=== PATIENT | female | born 1990 | race American Indian/Alaskan Native ===

== ENCOUNTER 2016-08-28 12:06 | Emergency (ER) | payer OTHER, MEDICAID ==
[2016-08-28] MEDS ORDERED: KEPPRA PO ONE (14:21)
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
[2016-08-28] MEDS ORDERED: NORCO 5/325 PO ONE (14:39)
--- NOTE | 2016-08-28 15:55 | Cat Scan Report ---
CT scan cervical spine: History: Trauma. Findings: Odontoid process, lateral mass and anterior and posterior arch of atlas appears normal. Occipital condyles appears normal. Normal height of vertebral bodies and intervertebral disc. Normal articular surfaces. No fracture. Normal prevertebral soft tissue. Impression: Essentially negative cervical spine.
--- NOTE | 2016-08-28 15:56 | Cat Scan Report ---
CT scan of head without contrast: History: Trauma. Findings: Ventricles are normal in size and midline in location. No evidence of acute ischemia, hemorrhage or mass. No extra-axial fluid collection. Normal brainstem and cerebellum. Retention cyst or polyp measuring 1.7 x 1 cm in diameter the right maxillary sinus. Impression: No acute intracranial abnormality.
[2016-08-28 16:15] VITALS: BP 146/86
== END 2016-08-28 16:14 | disposition home or self-care (01) ==
LOC: ED 12:06
DX: S13.4XXA Sprain of ligaments of cervical spine, initial encounter (principal); G40.909 Epilepsy, unspecified, not intractable, without status epilepticus; M19.90 Unspecified osteoarthritis, unspecified site; Z88.0 Allergy status to penicillin; Z88.6 Allergy status to analgesic agent; V89.2XXA Person injured in unspecified motor-vehicle accident, traffic, initial encounter; Y93.9 Activity, unspecified; Y99.9 Unspecified external cause status; Y92.410 Unspecified street and highway as the place of occurrence of the external cause
CPT/HCPCS: 70450; 72125; 81025; 99283

== ENCOUNTER 2016-11-20 21:03 | Emergency (ER) | payer MEDICAID, OTHER ==
[2016-11-20] MEDS ORDERED: NACL 0.9% 1000 ML 1,000 ML ONE (21:38)
[2016-11-20 21:49] LABS: Urine Drugs of Abuse Note Disclamer
[2016-11-20 22:01] LABS: Bilirubin,Urine NEG (Negative); Blood,Urine SM (Negative); Ketones,Urine NEG (Negative); Leukocyte Esterase,Urine NEG (Negative); Nitrite,Urine NEG (Negative); Protein,Urine <15 mg/dL mg/dL (Negative); RBC,Urine < 1.0 /HPF (0.0-6.0); Urobilinogen,Urine < 2.0 mg/dL (<2.0); WBC,Urine < 1.0 /HPF (0.0-6.0)
[2016-11-20 22:05] LABS: Basophils % (Auto) 0.7 % (0.0-1.8); Eosinophils % (Auto) 1.4 % (0.0-4.3); Hemoglobin 12.9 gm/dl (10.1-14.3); Mean Corpuscular HGB Conc 32 % (30-34); Mean Corpuscular Hemoglobin 28 pg (28-32); Mean Corpuscular Volume 86 fl (79-97); Platelet Count 266 K/mm3 (140-440); Red Blood Count 4.68 M/mm3 (3.65-5.03); Red Cell Distribution Width 15.5 % (13.2-15.2); White Blood Count 6.8 K/mm3 (4.5-11.0)
[2016-11-20 22:17] LABS: Anion Gap 22 mmol/L; Blood Urea Nitrogen 9 mg/dL (7-17); Calcium 9.6 mg/dL (8.4-10.2); Carbon Dioxide 20 mmol/L (22-30); Chloride 103.4 mmol/L (98-107); Glucose 98 mg/dL (65-100); Potassium 3.6 mmol/L (3.6-5.0); Sodium 142 mmol/L (137-145)
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
[2016-11-20] MEDS ORDERED: NACL 0.9% 1000 ML 1,000 ML IV ONE (23:08)
[2016-11-21] MEDS ORDERED: TRIPLE ANTIBIOTIC TP ONE ×2 (05:24→06:27)
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
[2016-11-21] MEDS: KEPPRA PO SCH (22:40)
[2016-11-22] MEDS: KEPPRA PO SCH (10:01)
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
[2016-11-22] MEDS: ZOLOFT PO SCH (15:07)
[2016-11-22] MEDS: VISTARIL PO SCH ×2 (15:07→22:57)
[2016-11-22] MEDS ORDERED: DESYREL PO SCH (22:00)
--- NOTE | 2016-11-23 09:49 | Progress Note ---
Subjective - Reason for Consult Consult date: 11/23/16 Reason for consult: Psychiatry Follow-up - Chief Complaint Chief complaint: "Not a bad day" This is a 26 year-old domiciled female who reports a formal PPH of MDD, PTSD and alcohol abuse who presents the ER after a recent overdose as well as self- inflicted lacerations on forearms bilaterally. Today patient is calm and cooperative with a linear thought process. She acknowledged getting rest last night and feel much better today. She stated that life stressors (unemployment and financial obligations) just took a toll on her. She stated, 'I felt overwhelmed." She decided to take the pills, cut on herself using a razor blade (both arms), and drink alcohol (etoh). She stated, "I wanted it to be over." Patient have a hx of depression/anxiety and admits not having good coping skills. Today she was more forthcoming with information about the latest episode (self injury and taking pills.) She denies SI/HI's, AVH's, or sleep disturbance. She rate her depression/anxiety 3/10, with 10 being the worse. Mental Status Exam - Vital signs Last Vital Signs Temp 97.5 F L 11/22/16 08:34 Pulse 72 11/22/16 19:15 Resp 17 11/22/16 19:15 BP 103/53 11/22/16 19:15 Pulse Ox 99 11/22/16 19:15 - Exam Narrative exam: MSE: Appearance: calm, cooperative Behavior: good eye contact Speech: regular rate and tone Mood: "I feel better" Affect: euthymic Thought Process: linear Thought Content: denies SI/HI's and AVH's Motor Activity: Ambulatory Cognition: A/O x3 Insight: fair Judgment: fair Assessment and Plan Impression: This is a 26 year-old domiciled female who reports a formal PPH of MDD, PTSD and alcohol abuse who presents the ER after a recent overdose as well as self-inflicted lacerations on forearms bilaterally. Today patient is calm and cooperative with a linear thought process. She acknowledged getting rest last night and feel much better today. Patient alcohol level was 0.26 with sleep deprivation on admission. Patient has gotten rest and a better historian today. This is her 3rd day in the hospital. Recommendation/Plan: Continue Continue patient on 1013 and transferred to inpatient psychiatric facility. Continue Trazodone 50 mg PO HS for sleep, Zoloft 50 mg PO for depression, and Vistaril 25 TID for acute anxiety. Discussed possible suicidality and medication induced steven (Antidepressants). Generalized coping skills discussed with patient.
[2016-11-23] MEDS: VISTARIL PO SCH ×2 (10:09→14:05)
[2016-11-23] MEDS: KEPPRA PO SCH (10:09)
[2016-11-23] MEDS: ZOLOFT PO SCH (10:09)
[2016-11-23 11:21] VITALS: BP 107/59
== END 2016-11-23 14:24 | disposition home or self-care (01) ==
LOC: EEVIPCON 21:03 → ED 21:03
DX: T50.2X2A Poisoning by carbonic-anhydrase inhibitors, benzothiadiazides and other diuretics, intentional self-harm, initial encounter (principal); F10.120 Alcohol abuse with intoxication, uncomplicated; M19.90 Unspecified osteoarthritis, unspecified site; F17.200 Nicotine dependence, unspecified, uncomplicated; Z88.0 Allergy status to penicillin; Z88.8 Allergy status to other drugs, medicaments and biological substances; Y92.89 Other specified places as the place of occurrence of the external cause
CPT/HCPCS: 36415; 80048; 80307; 81001; 81025; 85025; 93005; 93010; 96360; 96361; 99285; G0480; J7030; 80320; A6250; Q0177

== ENCOUNTER 2016-12-06 21:50 | Emergency (ER) | payer MEDICAID ==
[2016-12-07 00:09] LABS: Urine Drugs of Abuse Note Disclamer
[2016-12-07 00:30] LABS: Bilirubin,Urine NEG (Negative); Blood,Urine SM (Negative); Ketones,Urine NEG (Negative); Leukocyte Esterase,Urine NEG (Negative); Mucus,Urine FEW /HPF; Nitrite,Urine NEG (Negative); Urobilinogen,Urine < 2.0 mg/dL (<2.0)
[2016-12-07 00:42] LABS: Hematocrit 35.4 % (30.3-42.9); Hemoglobin 11.6 gm/dl (10.1-14.3); Mean Corpuscular HGB Conc 33 % (30-34); Mean Corpuscular Hemoglobin 29 pg (28-32); Mean Corpuscular Volume 88 fl (79-97); Platelet Count 270 K/mm3 (140-440); Red Blood Count 4.04 M/mm3 (3.65-5.03); Red Cell Distribution Width 14.9 % (13.2-15.2); White Blood Count 11.4 K/mm3 (4.5-11.0)
[2016-12-07 00:51] LABS: Anion Gap 20 mmol/L; BUN/Creatinine Ratio 16.66; Blood Urea Nitrogen 10 mg/dL (7-17); Calcium 8.5 mg/dL (8.4-10.2); Carbon Dioxide 20 mmol/L (22-30); Chloride 104.1 mmol/L (98-107); Glucose 93 mg/dL (65-100); Potassium 3.8 mmol/L (3.6-5.0); Sodium 140 mmol/L (137-145)
[2016-12-07] MEDS ORDERED: XYLOCAINE 1%/ EPI 1:100,000 INFILTRATI ONE ×2 (03:43)
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
[2016-12-07] MEDS ORDERED: KEPPRA PO SCH (10:00)
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
[2016-12-07 11:36] VITALS: BP 140/83
[2016-12-07] MEDS ORDERED: ZOLOFT PO SCH (16:00)
[2016-12-07] MEDS ORDERED: VISTARIL PO SCH (20:00)
[2016-12-07] MEDS ORDERED: DESYREL PO SCH (22:00)
== END 2016-12-07 16:30 ==
LOC: ED 21:50
DX: F10.129 Alcohol abuse with intoxication, unspecified (principal); R45.850 Homicidal ideations; R46.89 Other symptoms and signs involving appearance and behavior; R56.9 Unspecified convulsions; F43.10 Post-traumatic stress disorder, unspecified; Z87.891 Personal history of nicotine dependence
CPT/HCPCS: 36415; 80048; 80307; 81001; 81025; 85027; 99285; G0480; 80320

== ENCOUNTER 2017-11-04 12:18 | Emergency (ER) | payer MEDICAID ==
[2017-11-04 14:01] LABS: Basophils % (Auto) 0.3 % (0.0-1.8); Eosinophils # (Auto) 0.2 K/mm3 (0.0-0.4); Eosinophils % (Auto) 1.6 % (0.0-4.3); Hematocrit 32.9 % (30.3-42.9); Hemoglobin 10.9 gm/dl (10.1-14.3); Lymphocytes % (Auto) 16.7 % (13.4-35.0); Mean Corpuscular HGB Conc 33 % (30-34); Mean Corpuscular Hemoglobin 28 pg (28-32); Mean Corpuscular Volume 85 fl (79-97); Monocytes # (Auto) 1.1 K/mm3 (0.0-0.8); Monocytes % (Auto) 9.5 % (0.0-7.3); Red Blood Count 3.89 M/mm3 (3.65-5.03); Red Cell Distribution Width 14.2 % (13.2-15.2)
[2017-11-04 14:02] LABS: Platelet Count 299 K/mm3 (140-440)
[2017-11-04 16:52] VITALS: BP 116/62
[2017-11-04 17:09] LABS: Bilirubin,Urine NEG (Negative); Blood,Urine LG (Negative); Color,Urine Yellow (Yellow); Mucus,Urine FEW /HPF; Protein,Urine <15 mg/dL mg/dL (Negative)
--- NOTE | 2017-11-04 17:18 | Ultrasound Report ---
FINAL REPORT EXAM: US OB > = 14 WK FETUS ADD GEST HISTORY: VAG BLEEDING AND PREG TECHNIQUE: Standard full obstetrical ultrasound for twin PRIORS: None. FINDINGS: LMP: unknown Clinical Age:? W ? D LMP EDC: ? BABY A US Age (average) = 20 w 2D EFW (BPD,HC,AC,FL) = 345 g +/-51G (0lbs 12 oz. +/- 2 oz.) EDC 03/22/2018 CI 89.4) HC/AC 1.12 FL/BPD 65.2 FL/HC 18.3 FL/AC 20.5 BPD 4.9 cm corresponding to estimated age 20 weeks 5 days HC 17.4 cm corresponding to estimated age 19 weeks 6 days AC 15.3 cm corresponding to estimated age 20 weeks 5 days FL 13.2 cm corresponding to estimated age 19 weeks 6 days Presentation: Cephalic Activity: Monitored Placental location: Anterior to the right lateral aspect with no evidence for previa. Placental grade: 0 Cardiac motion: 154 BPM using M-mode doppler Heart (4 CH) : Present Umbilical cord: 3 vessel Bladder: Present Kidneys: Present stomach: Present Diaphragm: Present Spine: Present brain and skull: Present with normal anatomy femurs: Present humerus: Present Cord Insertion: Present Amniotic Fluid Volume: Adequate BABY B US Age (average) = 20 w 0 d EFW (BPD,HC,AC,FL) = 322 g +/-48g (0lbs 11 oz. +/- 2 oz.) EDC 03/24/2018 CI 84.8 HC/AC 1.18 FL/BPD 68.6 FL/HC 18.9 FL/AC 22.2 BPD 4.8 cm corresponding to estimated age 20 weeks 2 days HC 17.5 cm corresponding to estimated age 19 weeks 5 days AC 14.5 cm corresponding to estimated age 19 weeks 6 days FL 3.3 cm corresponding to estimated age 20 weeks 0 days Presentation: Fetus B head to the maternal left Activity: Monitored Placental location: Left lateral aspect anteriorly but no evidence for previa. Placental grade: 0 Cardiac motion: 149 BPM using M-mode doppler Heart (4 CH) : Present Umbilical cord: 3 vessel Bladder: Present Kidneys: Not visualized due to positioning stomach: Present Diaphragm: Present Spine: Partially visualized but sagittal imaging is limited due to positioning. brain and skull: Present with normal anatomy femurs: Present Cord Insertion: Present Amniotic Fluid Volume: Adequate Cervical Length: 2.6 cm IMPRESSION: Twin intrauterine viable with an approximate age of 20 weeks 2 days for FETUS A and approximate age of 20 weeks 0 days for FETUS B. 2 separate placentas are noted. TECHNIQUE: PRIORS: FINDINGS: IMPRESSION:
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
== END 2017-11-04 18:11 | disposition home or self-care (01) ==
LOC: ED 12:18
DX: O20.9 Hemorrhage in early pregnancy, unspecified (principal); R10.30 Lower abdominal pain, unspecified; O26.892 Other specified pregnancy related conditions, second trimester; Z3A.20 20 weeks gestation of pregnancy
CPT/HCPCS: 36415; 76805; 76810; 81001; 84703; 85025; 86850; 86900; 86901

== ENCOUNTER 2017-11-11 14:59 | Emergency (ER) | payer SELFPAY ==
[2017-11-11 16:02] LABS: Basophils % (Auto) 0.3 % (0.0-1.8); Eosinophils # (Auto) 0.1 K/mm3 (0.0-0.4); Eosinophils % (Auto) 1.2 % (0.0-4.3); Hematocrit 29.7 % (30.3-42.9); Hemoglobin 9.8 gm/dl (10.1-14.3); Lymphocytes # (Auto) 1.9 K/mm3 (1.2-5.4); Mean Corpuscular HGB Conc 33 % (30-34); Mean Corpuscular Hemoglobin 28 pg (28-32); Mean Corpuscular Volume 84 fl (79-97); Monocytes # (Auto) 1.2 K/mm3 (0.0-0.8); Platelet Count 314 K/mm3 (140-440); Red Blood Count 3.54 M/mm3 (3.65-5.03); Red Cell Distribution Width 13.8 % (13.2-15.2)
[2017-11-11 16:17] LABS: BUN/Creatinine Ratio 17; Blood Urea Nitrogen 5 mg/dL (7-17); Calcium 9.2 mg/dL (8.4-10.2); Hemolysis Index 5
[2017-11-11 17:37] LABS: Bilirubin,Urine NEG (Negative); Blood,Urine NEG (Negative); Mucus,Urine 1+ /HPF
[2017-11-11 17:38] LABS: Color,Urine Dark Yellow (Yellow)
[2017-11-11 17:45] LABS: Amphetamine Screen,Urine PRESUMPTIVE NEGATIVE; Benzodiazepines Screen,Urine PRESUMPTIVE NEGATIVE; Cannabinoid Screen,Urine PRESUMPTIVE NEGATIVE; Cocaine Screen,Urine PRESUMPTIVE NEGATIVE; Opiate Screen,Urine PRESUMPTIVE NEGATIVE
[2017-11-11 18:00] LABS: Methadone Screen,Urine PRESUMPTIVE POSITIVE
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
[2017-11-11] MEDS ORDERED: KEFLEX PO ONE (19:03)
[2017-11-11] MEDS ORDERED: BOOSTRIX IM ONE (19:03)
[2017-11-11 19:31] VITALS: BP 120/72
[2017-11-11] MEDS ORDERED: TRIPLE ANTIBIOTIC TP ONE (19:45)
[2017-11-11] MEDS ORDERED: ANTIBIOTIC OINT TP ONE (20:00)
== END 2017-11-11 19:55 | disposition home or self-care (01) ==
LOC: ED 14:59
DX: O9A.212 Injury, poisoning and certain other consequences of external causes complicating pregnancy, second trimester (principal); S41.112A Laceration without foreign body of left upper arm, initial encounter; O99.342 Other mental disorders complicating pregnancy, second trimester; M19.90 Unspecified osteoarthritis, unspecified site; O99.332 Smoking (tobacco) complicating pregnancy, second trimester; F12.10 Cannabis abuse, uncomplicated; Z3A.20 20 weeks gestation of pregnancy; Z90.49 Acquired absence of other specified parts of digestive tract; Z88.0 Allergy status to penicillin; Z88.8 Allergy status to other drugs, medicaments and biological substances; Y33.XXXA Other specified events, undetermined intent, initial encounter; Y93.89 Activity, other specified; Y92.89 Other specified places as the place of occurrence of the external cause; Y99.8 Other external cause status
CPT/HCPCS: 36415; 80048; 80307; 81001; 85025; 90471; 90715; 99284; G0480; 80320; A6250

== ENCOUNTER 2017-11-15 10:22 | Inpatient (IN) | payer MEDICAID ==
[2017-11-15] MEDS ORDERED: LACTATED RINGERS 500 ML IV ONE (12:00)
[2017-11-15 12:22] LABS: Bilirubin,Urine NEG (Negative); Blood,Urine LG (Negative); Color,Urine Yellow (Yellow); Mucus,Urine FEW /HPF; Protein,Urine <15 mg/dL mg/dL (Negative); Urobilinogen,Urine < 2.0 mg/dL (<2.0)
[2017-11-15 12:27] LABS: Amphetamine Screen,Urine PRESUMPTIVE NEGATIVE; Benzodiazepines Screen,Urine PRESUMPTIVE NEGATIVE; Cannabinoid Screen,Urine PRESUMPTIVE NEGATIVE; Cocaine Screen,Urine PRESUMPTIVE NEGATIVE; Methadone Screen,Urine PRESUMPTIVE NEGATIVE; Opiate Screen,Urine PRESUMPTIVE NEGATIVE
--- NOTE | 2017-11-15 13:26 | History and Physical Report ---
History of Present Illness Date of examination: 11/15/17 Date of admission: 11/15/17 Chief complaint: vaginal bleeding and contractions History of present illness: This is a 27 yo G P at 21+4 weeks with twins. She has no care. She is a user of drugs. Hx of epilepsy ( took meds today) No other history noted Past History Past Medical History: seizure Past Surgical History: no surgical history Family/Genetic History: none Social history: no significant social history, single, smoking, prescription drug abuse, IV drug use - Obstetrical History Expected Date of Delivery: 03/25/18 Actual Gestation: 21 Week(s) 3 Day(s) : 5 Para: 3 Hx # Term Pregnancies: 1 Number of Pregnancies: 2 Spontaneous Abortions: 0 Induced : 1 Number of Living Children: 3 Medications and Allergies Allergies Allergy/AdvReac Type Severity Reaction Status Date / Time Penicillins Allergy Rash Verified 05/03/14 09:05 tramadol AdvReac Unknown Verified 05/03/14 09:05 Home Medications Medication Instructions Recorded Confirmed Last Taken Type levETIRAcetam [Keppra TAB] 1,500 mg PO DAILY 11/20/16 12/07/16 12/07/16 History Cephalexin [Keflex] 500 mg PO Q8HR #12 cap 11/11/17 Unknown Rx Review of Systems All systems: negative Genitourinary: vaginal bleeding, contractions - Physical Exam Breasts: Positive: normal Cardiovascular: Regular rate, Normal S1 Lungs: Positive: Clear to auscultation, Normal air movement Abdomen: Positive: normal appearance, soft, normal bowel sounds. Negative: distention, tenderness, guarding Genitourinary (Female): Positive: normal external genitalia, normal perenium Vulva: both: normal Vagina: Positive: normal moisture Uterus: Positive: normal size Anus/Rectum: Positive: normal perianal skin Extremities: Positive: normal Deep Tendon Reflex Grade: Normal +2 - Obstetrical FHR: auscultation normal Uterine Contraction Pattern: Regular Uterine Tone Measurement Phase: Contraction Uterine Contraction Intensity: Mild Results Abnormal lab results 11/15/17 Range/Units 11:33 Urine pH 8.0 H (5.0-7.0) Urine WBC (Auto) 42.0 H (0.0-6.0) /HPF All other labs normal. Assessment and Plan A/P IUP 21+4 weeks twins inevitable advanced dilation niccu consult non viable expect vaginal delivery A cephalic and B transverse labs, IVF. tox screen
--- NOTE | 2017-11-15 13:33 | Anesthesia Consultation ---
Anesthesia Consult and Med Hx Date of service: 11/15/17 - Airway Anesthetic Teeth Evaluation: Good ROM Head & Neck: Adequate Mental/Hyoid Distance: Adequate Mallampati Class: Class II Intubation Access Assessment: Probably Good - Pre-Operative Health Status ASA Pre-Surgery Classification: ASA2 Proposed Anesthetic Plan: Epidural, Spinal - Pulmonary Hx Asthma: No COPD: No Hx Pneumonia: No Hx Sleep Apnea: No - Cardiovascular System Hx Hypertension: No - Central Nervous System Hx Seizures: Yes (epilepsey) CVA: No Hx Psychiatric Problems: Yes (bi polar, skitzphrenia, ptsd) - Gastrointestinal Hx Ulcer: No - Endocrine Hx Renal Disease: No Hx End Stage Renal Disease: No Hx Liver Disease: No Hx Hypothyroidism: No Hx Hyperthyroidism: No - Hematic Hx Anemia: No Hx Sickle Cell Disease: No - Other Systems Hx Alcohol Use: Yes Hx Cancer: No Hx Obesity: No
[2017-11-15] MEDS ORDERED: NARCAN 2 MG/2 ML IV PRN (13:34)
[2017-11-15] MEDS ORDERED: ePHEDrine SULFATE IV PRN (13:34)
[2017-11-15] MEDS: LACTATED RINGERS 1,000 ML IV SCH ×2 (13:45→18:43)
[2017-11-15] MEDS ORDERED: fentaNYL-BUPIV 2 MCG/ML-0.125% 200 MCG/100 ML BAG EPIDURAL SCH (14:00)
[2017-11-15 14:16] LABS: Basophils % (Auto) 0.2 % (0.0-1.8); Eosinophils # (Auto) 0.1 K/mm3 (0.0-0.4); Eosinophils % (Auto) 0.6 % (0.0-4.3); Hematocrit 28.9 % (30.3-42.9); Hemoglobin 9.6 gm/dl (10.1-14.3); Lymphocytes # (Auto) 1.9 K/mm3 (1.2-5.4); Lymphocytes % (Auto) 13.4 % (13.4-35.0); Mean Corpuscular HGB Conc 33 % (30-34); Mean Corpuscular Hemoglobin 28 pg (28-32); Mean Corpuscular Volume 85 fl (79-97); Monocytes # (Auto) 0.9 K/mm3 (0.0-0.8); Monocytes % (Auto) 6.6 % (0.0-7.3); Platelet Count 365 K/mm3 (140-440); Red Blood Count 3.42 M/mm3 (3.65-5.03); Red Cell Distribution Width 13.3 % (13.2-15.2)
[2017-11-15 14:26] LABS: INR 0.96 (0.87-1.13)
[2017-11-15] MEDS ORDERED: MACROBID PO SCH (16:00)
--- NOTE | 2017-11-15 20:25 | Event Note ---
Date: 11/15/17 Patient was checked and noted baby in the vagina. Arom clear fluid with delivery of fetus A. Peds was called and no intervention. Cord was clamped and cut. will give cytotec 200 ug now. EBL 100 cc. Patient stable
--- NOTE | 2017-11-15 20:27 | Consultation ---
History of Present Illness Consult date: 11/15/17 Requesting physician: SUYAPA SALEH Reason for consult: prematurity History of present illness: Medicine consult requested by Dr. Suyapa Saleh to discuss resuscitation management with mother of imminent delivery of twin gestation at 21 completed weeks. Mother is a 27 yo [id number] with history of no care except for single earlier U/S consistent with LMP and SOFIA 03/25/2018. Mother presents wit 1 day hx of cramping abdominal pain and vaginal bleeding. Obstetric exam c/w advanced cervical dilation and U/S c/w dates. Mother with previous delivery at 27 weeks. Discussed pre- viable nature of current and futility of resuscitation at this gestation. Mother understands and concurs with no resuscitative measures should delivery progress at this time. Maternal grandmother present and agrees. Assured mother that further questions could be addressed Documentation - information: Height 5 ft 8 in Medications and Allergies Allergies Allergy/AdvReac Type Severity Reaction Status Date / Time Penicillins Allergy Rash Verified 05/03/14 09:05 tramadol AdvReac Unknown Verified 05/03/14 09:05 Home Medications Medication Instructions Recorded Confirmed Last Taken Type levETIRAcetam [Keppra TAB] 1,500 mg PO DAILY 11/20/16 11/15/17 11/15/17 09:30 History Cephalexin [Keflex] 500 mg PO Q8HR #12 cap 11/11/17 11/15/17 11/14/17 22:00 Rx ALPRAZolam [Xanax] 1 mg PO TID 11/15/17 11/15/17 11/14/17 22:00 History OXcarbazepine [Trileptal] 300 mg PO BID 11/15/17 11/15/17 11/14/17 22:00 History Prazosin HCl 2 mg PO HS 11/15/17 11/15/17 11/14/17 22:00 History Trazodone HCl 200 mg PO HS 11/15/17 11/15/17 11/14/17 22:00 History Active Meds: Active Medications Ephedrine Sulfate (Ephedrine Sulfate) 10 mg IV Q2M PRN PRN Reason: Hypotension Fentanyl/Bupivacaine/Sodium Chlor (Fentanyl-Bupiv 2 Mcg/Ml-0.125%) 200 mcg in 100 mls @ 12 mls/hr EPIDURAL TITR KELLIE; Protocol Last Admin: 11/15/17 16:51 Dose: 12 mls/hr Lactated Ringer's (Lactated Ringers) 1,000 mls @ 125 mls/hr IV DIRECT KELLIE Last Admin: 11/15/17 18:43 Dose: 125 mls/hr Misoprostol (Cytotec) 1,000 mcg GA ONCE ONE Stop: 11/15/17 21:01 Misoprostol (Cytotec) 200 mcg PO Q6HR KELLIE Naloxone HCl (Narcan 2 Mg/2 Ml) 0.2 mg IV Q5M PRN PRN Reason: Respiratory sedation Nitrofurantoin Macrocrystals (Macrobid) 100 mg PO Q12HR KELLIE Last Admin: 11/15/17 16:00 Dose: Not Given Exam Vital Signs Temp Resp 97.6 F 18 11/15/17 14:08 11/15/17 14:08 Temp Pulse Resp BP Pulse Ox 97.6 F 18 11/15/17 14:08 11/15/17 14:08 Results - Laboratory Findings 11/15/17 13:22 Abnormal lab results 11/15/17 11/15/17 Range/Units 11:33 13:22 WBC 14.0 H (4.5-11.0) K/mm3 RBC 3.42 L (3.65-5.03) M/mm3 Hgb 9.6 L (10.1-14.3) gm/dl Hct 28.9 L (30.3-42.9) % Stephens # 0.9 H (0.0-0.8) K/mm3 Seg Neutrophils % 79.2 H (40.0-70.0) % Seg Neutrophils # 11.1 H (1.8-7.7) K/mm3 Urine pH 8.0 H (5.0-7.0) Urine WBC (Auto) 42.0 H (0.0-6.0) /HPF
[2017-11-15] MEDS ORDERED: PITOCin/NS 20 UNIT/1000ML DRIP 20,000 MILLIUNITS/1,000 ML BAG IV ONE (20:34)
--- NOTE | 2017-11-15 20:46 | Event Note ---
Date: 11/15/17 Patient was noted to feel pressure. Cytotec was not given. Bag at introitus. Fetus B delivered cephalic intact in bag. Both placenta delivered intact.
--- NOTE | 2017-11-15 20:54 | Procedure Note ---
OB Delivery Note - Delivery Date of Delivery: 11/15/17 Surgeon: NASEEM MARINELLI Estimated blood loss: 300cc - Vaginal Delivery presentation: vertex Delivery position: OA Intrapartum events: no care Delivery induction: none Delivery augmentation: rupture of membranes Delivery monitor: external uterine Route of delivery: Delivery placenta: spontaneous Delivery cord: 3 umbilical vessels Episiotomy: none Delivery laceration: none Anesthesia: epidural Delivery comments: Patient was checked and noted baby in the vagina. Arom clear fluid with delivery of fetus A. Peds was called and no intervention. Cord was clamped and cut. will give cytotec 200 ug now. EBL 100 cc. Patient stable Patient was noted to feel pressure. Cytotec was not given. Bag at introitus. Fetus B delivered cephalic intact in bag. Both placenta delivered intact. Baby A delivered at 2000 and baby B delivered at 2033. Placenta fetus A at 2032 and Fetus B 2023. EBL 500 cc total. Patietn tolerated procedure well. Minimal bleeding with uterus firm. - Infant A at 1 minute: 0 at 5 minutes: 0 Infant Gender: Male B at 1 minute: 0 at 5 minutes: 0 Gender: Female
[2017-11-15] MEDS ORDERED: PHENERGAN PR PRN (20:58)
[2017-11-15] MEDS ORDERED: DULCOLAX PR PRN (20:58)
[2017-11-15] MEDS ORDERED: TORADOL IV PRN (20:58)
[2017-11-15] MEDS ORDERED: PHENERGAN PO PRN (20:58)
[2017-11-15] MEDS ORDERED: LANSINOH TP PRN (20:58)
[2017-11-15] MEDS ORDERED: MILK OF MAGNESIA PO PRN (20:58)
[2017-11-15] MEDS ORDERED: PERCOCET 5/325 PO PRN (20:58)
[2017-11-15] MEDS ORDERED: NORCO 5/325 PO PRN (20:58)
[2017-11-15] MEDS ORDERED: TUCKS PAD TP PRN (20:58)
[2017-11-15] MEDS ORDERED: ZOFRAN IV PRN (20:58)
[2017-11-15] MEDS ORDERED: BENADRYL PO PRN (20:58)
[2017-11-15] MEDS ORDERED: TYLENOL PO PRN (20:58)
[2017-11-15] MEDS ORDERED: CYTOTEC PO SCH (21:00)
[2017-11-15] MEDS ORDERED: SODIUM CHLORIDE FLUSH SYRINGE 10 ML IV NR (21:00)
[2017-11-15] MEDS ORDERED: CYTOTEC PR ONE (21:00)
[2017-11-15] MEDS ORDERED: PITOCin/NS 20 UNIT/1000ML DRIP 20 UNITS/1,000 ML BAG IV SCH (21:00)
[2017-11-15] MEDS ORDERED: SENOKOT S PO SCH (21:00)
[2017-11-15] MEDS ORDERED: DESYREL PO SCH (22:00)
[2017-11-15] MEDS ORDERED: MINIPRESS PO SCH (22:00)
[2017-11-15] MEDS ORDERED: COLACE PO SCH (22:00)
[2017-11-15] MEDS: TRILEPTAL PO SCH (22:51)
[2017-11-15] MEDS: MOTRIN PO SCH (22:52)
[2017-11-16] MEDS: MOTRIN PO SCH (04:12)
--- NOTE | 2017-11-16 07:06 | Ultrasound Report ---
FINAL REPORT PROCEDURE: US OB > = 14 WK FETUS ADD GEST TECHNIQUE: Real-time transabdominal sonography of the uterus, placenta, amniotic fluid, adnexa, and fetus was performed with image documentation. Measurements were obtained to determine age/size. M-mode Doppler was used to document heartbeat. CPT 50105 HISTORY: vaginal bleeding/ no PNC twins COMPARISON: 11/04/2017 FINDINGS: This is a twin gestation. Fetus a is in a vertex presentation. heart activity is noted. The placenta is along the anterior uterus. There is a normal amount of amniotic fluid present. Baby a average uterine age 21 weeks 4 days based on the following measurements: BPD 5.5 centimeter, HC 19.3 centimeter, AC 15.8 centimeter, FL 3.4 centimeter. Baby B in a transverse position. For a normal amount of a merit fluid is present. heart activity is noted. The average uterine age for baby B is 21 weeks 2 days based on the following measurements: BPD 5 centimeter, HC 19.1 centimeter, AC 16.3 centimeter, FL 3.6 centimeter. The estimated date confinement is 03/25/2018. There has been adequate growth since prior study. The cervix is closed. The placenta has a normal echogenicity. IMPRESSION: Twin gestation. Average uterine age twin a 21 weeks 4 days. Average uterine age twin B 21 weeks 2 days. The estimated date confinement is 03/25/2018
--- NOTE | 2017-11-16 07:12 | Ultrasound Report ---
FINAL REPORT PROCEDURE: US OB > = 14 WEEKS FETUS TECHNIQUE: Real-time transabdominal sonography of the uterus, placenta, amniotic fluid, adnexa, and fetus was performed with image documentation. Measurements were obtained to determine age/size. M-mode Doppler was used to document heartbeat. CPT 89957 HISTORY: vaginal bleeding/ no PNC twins COMPARISON: No prior studies are available for comparison. FINDINGS: This is a 20 disc station. Fetus is in a vertex presentation. heart activity is noted. The placenta is along the anterior uterus. There is a normal amount of amniotic fluid present. Baby a average uterine age is 21 weeks 4 days based on the following measurements: BPD 5.5 centimeter, HC 19.3 centimeter, AC 15.8 centimeter, FL 3.4 centimeter. Baby B in a transverse position. A normal amount of amniotic fluid is present. heart activity is noted. The average uterine age for baby B is 21 weeks 2 days based on the following measurements: BPD 5 centimeter, HC 19.1 centimeter, AC 16.3 centimeter, FL 3.6 centimeter. Estimated date confinement is 03/25/2018. There has been adequate growth since prior study. The cervix is closed. The placenta is have a normal echogenicity. IMPRESSION: Twin gestation. Average uterine age of twin a 20 in weeks 4 days. Average uterine age of twin B 21 weeks 2 days. Estimated date confinement is 03/25/2018.
[2017-11-16] MEDS ORDERED: XANAX PO SCH (08:00)
--- NOTE | 2017-11-16 09:06 | Progress Note ---
Assessment and Plan - Patient Problems (1) Incompetent cervix Current Visit: Yes Status: Acute Plan to address problem: routine care patient elects to go home today (2) Twin gestation in second trimester Current Visit: Yes Status: Acute Subjective - Subjective Date of service: 11/16/17 Interval history: Patient without complaints. States her lochia is decreasing Patient reports: appetite normal, voiding normally, pain well controlled [place]: Objective - Vital Signs Latest vital signs: Vital Signs Temp Pulse Resp BP BP 11/16/17 04:22 98.6 F 76 18 110/68 11/16/17 00:19 98.8 F 76 20 102/60 11/15/17 22:51 93 H 116/71 11/15/17 19:30 98.5 F 80 18 106/65 11/15/17 14:08 97.6 F 18 Intake and Output 11/15/17 11/16/17 11/16/17 22:59 06:59 14:59 Intake Total 620.833 180 Output Total 600 Balance 620.833 -420 Intake: IV 620.833 Lactated Ringers 1,000 ml 620.833 @ 125 mls/hr IV DIRECT KELLIE Rx#:[id number] Oral 180 Output: Urine 600 Void 600 Other: Total, Intake Amount 180 Total, Output Amount 600 Estimated Blood Loss 500 - Exam Uterus: Present: normal, firm - Labs Labs: Abnormal lab results 11/15/17 11/15/17 Range/Units 11:33 13:22 WBC 14.0 H (4.5-11.0) K/mm3 RBC 3.42 L (3.65-5.03) M/mm3 Hgb 9.6 L (10.1-14.3) gm/dl Hct 28.9 L (30.3-42.9) % [place] # 0.9 H (0.0-0.8) K/mm3 Seg Neutrophils % 79.2 H (40.0-70.0) % Seg Neutrophils # 11.1 H (1.8-7.7) K/mm3 Urine pH 8.0 H (5.0-7.0) Urine WBC (Auto) 42.0 H (0.0-6.0) /HPF
--- NOTE | 2017-11-16 09:08 | Discharge Summary ---
Providers - Providers Date of Admission: 11/15/17 16:51 Date of discharge: 11/16/17 Attending physician: NASEEM SALEH MD Primary care physician: MADISON ANTONIO Hospitalization Reason for admission: labor, other (twin gestation) Delivery: complications: none Discharge diagnosis: delivery baby: twins Hospital course: Patient admitted with advanced cervical dilation with a twin gestation @ 21 weeks. Patient has not had care during the . She delivered a twin vaginally. The infants were non viable. course routine. Condition at discharge: Good Disposition: [id number] TO HOME OR SELFCARE - Discharge Diagnoses (1) Incompetent cervix Status: Acute (2) Twin gestation in second trimester Status: Acute Plan - Discharge Medications Prescriptions: HYDROcodone/APAP 5-325 [[place] 5/325] 1 each PO Q6HR PRN #30 tablet PRN Reason: Pain Ibuprofen [Motrin] 800 mg PO Q8HR PRN #60 tablet PRN Reason: Pain - Provider Discharge Summary Activity: no sex for 6 weeks, no heavy lifting 4 weeks, no strenuous exercise Diet: routine Instructions: routine Additional instructions: [] Smoking cessation referral if applicable(refer to patient education folder for contact #) [] Refer to [facility] Booklet Call your doctor immediately for: * Fever > 100.5 * Heavy vaginal bleeding ( >1 pad per hour) * Severe persistent headache * Shortness of breath * Reddened, hot, painful area to leg or breast * followup at [facility]'s obgyn with Dr Saleh in 2 weeks - Follow up plan
[2017-11-16] MEDS: TRILEPTAL PO SCH (09:43)
[2017-11-16] MEDS ORDERED: PRENATAL VITAMIN PO SCH (10:00)
[2017-11-16] MEDS ORDERED: KEPPRA PO SCH (10:00)
[2017-11-16 10:07] VITALS: BP 101/58
[2017-11-16 10:25] LABS: Hematocrit 25.8 % (30.3-42.9); Hemoglobin 9.1 gm/dl (10.1-14.3)
[2017-11-16] MEDS ORDERED: CYTOTEC PR ONE (19:00)
[2017-11-16] MEDS ORDERED: BOOSTRIX IM ONE (20:58)
[2017-11-16] MEDS ORDERED: M-M-R II VACCINE SUB-Q ONE (20:58)
== END 2017-11-16 13:55 | disposition left against medical advice (07) | DRG 775 ==
LOC: TRG 10:22 → LD 10:23 → TRG 16:48 → LD 16:51 → OB 23:53
PROVIDERS: ADMIT Obstetrics & Gynecology; ATTEND Obstetrics & Gynecology
PROC: 10E0XZZ Delivery of Products of Conception, External Approach (ICD-10-PCS; principal; 2017-11-15)
PROC: 10907ZC Drainage of Amniotic Fluid, Therapeutic from Products of Conception, Via Natural or Artificial Opening (ICD-10-PCS; 2017-11-15)
PROC: 3E0R3BZ Introduction of Anesthetic Agent into Spinal Canal, Percutaneous Approach (ICD-10-PCS; 2017-11-15)
PROC: 00HU33Z Insertion of Infusion Device into Spinal Canal, Percutaneous Approach (ICD-10-PCS; 2017-11-15)
DX: O60.12X0 Preterm labor second trimester with preterm delivery second trimester, not applicable or unspecified (principal); O30.002 Twin pregnancy, unspecified number of placenta and unspecified number of amniotic sacs, second trimester; Z3A.21 21 weeks gestation of pregnancy; Z37.4 Twins, both stillborn; O34.32 Maternal care for cervical incompetence, second trimester; O99.354 Diseases of the nervous system complicating childbirth; G40.909 Epilepsy, unspecified, not intractable, without status epilepticus; O99.324 Drug use complicating childbirth; F19.90 Other psychoactive substance use, unspecified, uncomplicated
CPT/HCPCS: 36415; 76805; 76810; 80307; 81001; 85014; 85018; 85025; 85610; 85730; 86592; 86706; 86762; 86850; 86900; 86901; 87806; 88305; J2590; J7120

== ENCOUNTER 2018-01-01 15:44 | Emergency (ER) | payer MEDICAID ==
[2018-01-01] MEDS ORDERED: MARCAINE 0.25% INFILTRATI ONE (16:26)
[2018-01-01] MEDS ORDERED: XYLOCAINE 1% 20 mL ONE (16:26)
[2018-01-01] MEDS ORDERED: NACL 0.9% 500 ML IR ONE (16:28)
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
[2018-01-01] MEDS ORDERED: ANTIBIOTIC OINT TP ONE (17:38)
[2018-01-01 17:46] LABS: Basophils # (Auto) 0.1 K/mm3 (0.0-0.1); Basophils % (Auto) 0.8 % (0.0-1.8); Eosinophils # (Auto) 0.1 K/mm3 (0.0-0.4); Eosinophils % (Auto) 1.2 % (0.0-4.3); Hematocrit 37.7 % (30.3-42.9); Hemoglobin 12.3 gm/dl (10.1-14.3); Lymphocytes # (Auto) 3.1 K/mm3 (1.2-5.4); Lymphocytes % (Auto) 34.7 % (13.4-35.0); Mean Corpuscular HGB Conc 33 % (30-34); Mean Corpuscular Hemoglobin 28 pg (28-32); Mean Corpuscular Volume 86 fl (79-97); Monocytes # (Auto) 0.6 K/mm3 (0.0-0.8); Monocytes % (Auto) 6.9 % (0.0-7.3); Platelet Count 271 K/mm3 (140-440); Red Blood Count 4.38 M/mm3 (3.65-5.03); Red Cell Distribution Width 13.7 % (13.2-15.2)
[2018-01-01 17:47] LABS: BUN/Creatinine Ratio 17; Blood Urea Nitrogen 10 mg/dL (7-17); Calcium 9.2 mg/dL (8.4-10.2); Hemolysis Index 14
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
[2018-01-01 19:16] LABS: Bacteria,Urine 1+ /HPF (Negative); Bilirubin,Urine NEG (Negative); Blood,Urine MOD (Negative); Color,Urine Yellow (Yellow); Mucus,Urine FEW /HPF; Protein,Urine <15 mg/dL mg/dL (Negative); Urobilinogen,Urine < 2.0 mg/dL (<2.0)
[2018-01-01 19:17] LABS: Amphetamine Screen,Urine PRESUMPTIVE NEGATIVE; Cannabinoid Screen,Urine PRESUMPTIVE NEGATIVE; Cocaine Screen,Urine PRESUMPTIVE NEGATIVE; Methadone Screen,Urine PRESUMPTIVE NEGATIVE; Opiate Screen,Urine PRESUMPTIVE NEGATIVE
[2018-01-01 19:30] LABS: Benzodiazepines Screen,Urine PRESUMPTIVE POSITIVE
[2018-01-01] MEDS ORDERED: MOTRIN ONE (21:35)
[2018-01-01] MEDS ORDERED: MOTRIN PO ONE (21:35)
[2018-01-02] MEDS ORDERED: TRILEPTAL ONE (09:15)
[2018-01-02] MEDS ORDERED: KEPPRA PO SCH (10:00)
[2018-01-02] MEDS ORDERED: TRILEPTAL PO SCH (10:00)
[2018-01-02 10:02] VITALS: BP 143/98
== END 2018-01-02 09:40 ==
LOC: ED 15:44
DX: S61.512A Laceration without foreign body of left wrist, initial encounter (principal); G40.909 Epilepsy, unspecified, not intractable, without status epilepticus; M19.90 Unspecified osteoarthritis, unspecified site; F20.9 Schizophrenia, unspecified; F31.9 Bipolar disorder, unspecified; F43.10 Post-traumatic stress disorder, unspecified; F17.210 Nicotine dependence, cigarettes, uncomplicated; Z90.49 Acquired absence of other specified parts of digestive tract; Z88.0 Allergy status to penicillin; Z88.6 Allergy status to analgesic agent; Z79.899 Other long term (current) drug therapy; X78.8XXA Intentional self-harm by other sharp object, initial encounter; Y93.89 Activity, other specified; Y92.89 Other specified places as the place of occurrence of the external cause; Y99.8 Other external cause status
CPT/HCPCS: 12005; 36415; 70450; 70486; 80048; 80307; 81001; 84703; 85025; 99285; G0480; 80320

== ENCOUNTER 2018-12-27 17:25 | Emergency (ER) | payer SELFPAY ==
[2018-12-27 17:47] VITALS: BP 157/109
[2018-12-27] MEDS ORDERED: IBUPROFEN PO ONE (17:48)
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
[2018-12-27] MEDS ORDERED: IBUPROFEN ONE (17:52)
== END 2018-12-27 19:49 | disposition left against medical advice (07) ==
LOC: ED 17:25
DX: K08.89 Other specified disorders of teeth and supporting structures (principal); Z53.21 Procedure and treatment not carried out due to patient leaving prior to being seen by health care provider

== ENCOUNTER 2020-08-06 17:29 | Outpatient (CLI) | payer MEDICAID ==
[2020-08-06] MEDS ORDERED: LACTATED RINGERS 1,000 ML IV SCH (17:45)
[2020-08-06 19:01] LABS: Bacteria,Urine 1+ /HPF (Negative); Bilirubin,Urine NEG (Negative); Blood,Urine NEG (Negative); Color,Urine Yellow (Yellow); Hyaline Casts,Urine 1 /LPF; Mucus,Urine FEW /HPF; Protein,Urine <15 mg/dL mg/dL (Negative); Urobilinogen,Urine < 2.0 mg/dL (<2.0)
[2020-08-06 19:32] VITALS: BP 108/68
[2020-08-06] MEDS: TERBUTALINE 1 MG/1 ML INJ SUB-Q SCH ×2 (19:48→20:41)
[2020-08-06] MEDS ORDERED: LACTATED RINGERS 1,000 ML IV ONE (21:34)
== END 2020-08-06 21:18 | disposition home or self-care (01) ==
LOC: TRG 17:29 → APU 17:33 → TRG 21:18
PROVIDERS: ATTEND Obstetrics & Gynecology
DX: O60.03 Preterm labor without delivery, third trimester (principal); O42.913 Preterm premature rupture of membranes, unspecified as to length of time between rupture and onset of labor, third trimester; O26.893 Other specified pregnancy related conditions, third trimester; R51.9 Headache, unspecified; O99.343 Other mental disorders complicating pregnancy, third trimester; F31.9 Bipolar disorder, unspecified; Z3A.33 33 weeks gestation of pregnancy
CPT/HCPCS: 59025; 81001; 96360; 96361; 96372; J3105; J7120

== ENCOUNTER 2020-08-26 13:19 | Outpatient (CLI) | payer MEDICAID ==
[2020-08-26] MEDS ORDERED: LACTATED RINGERS 500 ML IV ONE (13:52)
[2020-08-26 13:57] VITALS: BP 113/70
--- NOTE | 2020-08-26 15:55 | Vascular Lab Report ---
DUPLEX DOPPLER LOWER EXTREMITY VEINS, BILATERAL INDICATION: positive weir's sign. Bilateral lower extremity pain TECHNIQUE: Duplex doppler imaging was performed through the veins of both lower extremities using ve nous compression and other maneuvers. COMPARISON: No relevant prior imaging study available. FINDINGS: Right Common femoral vein: Negative. Right Superficial femoral vein: Negative. Right Popliteal vein: Negative. Right Calf veins: Negative. Left Common femoral vein: Negative. Left Superficial femoral vein: Negative. Left Popliteal vein: Negative. Left Calf veins: Negative. Additional findings: None. IMPRESSION: No sonographic evidence for DVT in either lower extremity. Signer Name: Jasper Avitia Jr, MD Signed: 08/26/2020 3:51 PM Workstation Name: [id number]
== END 2020-08-26 16:19 | disposition home or self-care (01) ==
LOC: TRG 13:19
PROVIDERS: ATTEND Obstetrics & Gynecology
DX: M79.661 Pain in right lower leg (principal)
CPT/HCPCS: 93970